=== PATIENT | male | born 1965 | race Caucasian/White ===

== ENCOUNTER 2018-04-15 12:59 | Outpatient (CLI) | payer BC ==
--- NOTE | 2018-04-15 19:44 | CT ---
CT ABDOMEN AND PELVIS WITH AND WITHOUT CONTRAST: HISTORY: R31 and R30, hematuria, acute pain, groin pain, dysuria. COMPARISON: None. FINDINGS: The lung bases are clear. No pericardial effusion. No pleural effusion. Small sliding hiatal herni a. On the noncontrast portion of the examination, there is no nephroureterolithiasis or hydroureteroneph rosis. No secondary evidence of a recently passed stone. No abnormal renal enhancing mass. No abnormal urothelial enhancing mass. No bladder wall mass. On the delayed sequence, there are no filling defects within the renal calices, ureters, or urinary b ladder. The adrenal glands are unremarkable. Prior cholecystectomy. Liver, spleen, and pancreas are all normal. Small retroperitoneal and periaortic lymph nodes are increased in number, although not size. Appendi x is visualized and is normal. Prostate is not significantly enlarged. There is diastasis recti between the infraumbilical rectus m uscles. There is asymmetric volume loss of the right piriformis muscle, relative to the left. There is super ior endplate deformity at L1 with sclerosis. There is severe degenerative disk space disease at L5-S 1. There is avascular necrosis of the right femoral head with articular surface collapse and fractur e through the articular surface, with no connection between the avascular fragment and the underlying femoral neck. Large right-sided hip joint effusion. IMPRESSION: 1. No nephroureterolithiasis or hydroureteronephrosis. No abnormal enhancing urothelial or renal ma ss. 2. No acute inflammatory process of the abdomen and pelvis. 3. Avascular necrosis, right femoral head, with collapse of the femoral head, as well as large right hip and joint effusion and developing secondary osteoarthritic disease. Orthopedic consultation for hip replacement evaluation recommended. 4. Superior endplate fracture of L1 does not appear acute, although it is new from the 2016 MRI exam ination. POS: [facility]
== END 2018-04-15 13:00 | disposition home or self-care (01) ==
LOC: SCSCT 12:59
PROVIDERS: ATTEND Family Medicine
DX: R31.0 Gross hematuria (principal); R30.0 Dysuria; M87.851 Other osteonecrosis, right femur
CPT/HCPCS: 74178

== ENCOUNTER 2018-10-18 12:49 | Outpatient (CLI) | payer BC | END 2018-10-18 12:50 | disposition home or self-care (01) | PROVIDERS: ATTEND Physical Medicine & Rehabilitation | DX: S24.15 Other incomplete lesions of thoracic spinal cord (principal) ==

== ENCOUNTER 2019-11-08 07:33 | Outpatient (CLI) | payer BC, OTHER ==
[2019-11-08 14:25] LABS: #Basophils 0.1 thou/uL (0.0-0.2); #Eosinphils 0.4 thou/uL (0.0-0.7); #Lymphocytes 1.6 thou/uL (1.20-3.40); #Monocytes 0.7 thou/uL (0.11-0.59); %Basophils 1.2 % (0.0-1.0); %Eosinophils 6.2 % (0.0-10.0); %Lymphocytes 23.8 % (21.0-51.0); %Monocytes 10.1 % (0.0-10.0); %Neutrophils 58.6 % (42.0-75.0); Hemoglobin 16.1 g/dL (14.0-18.0); Mean Corpuscular HGB CONC 32.7 g/dL (32.0-36.0); Mean Corpuscular Hemoglobin 31.1 pg (27.0-31.0); Mean Corpuscular Volume 95.3 fL (78.0-98.0); Mean Platelet Volume 8.4 fL (7.4-10.4); Platelet Count 282 thou/uL (130-400); Red Blood Cell (RBC) Count 5.18 mill/uL (4.70-6.10); White Blood Cell (WBC) Count 6.8 thou/uL (4.8-10.8)
[2019-11-08 14:44] LABS: ALT (SGPT) 40 U/L (8-55); AST (SGOT) 32 U/L (5-34); Alkaline Phosphatase 118 U/L (40-110); Anion Gap 17 mmol/L (10-20); BUN (Urea Nitrogen) 15 mg/dL (8.4-25.7); Bilirubin, Total 0.5 mg/dL (0.2-1.2); Calc. Creatinine Clearance 0 mL/min (70-130); Calcium 8.8 mg/dL (7.8-10.44); Carbon Dioxide 20 mmol/L (22-29); Chloride 102 mmol/L (98-107); Estimated GFR-MDRD 84; Globulin 3.6 g/dL (2.4-3.5); Potassium 4.8 mmol/L (3.5-5.1); Protein, Total 7.6 g/dL (6.0-8.3); Sodium 134 mmol/L (136-145)
[2019-11-08 14:54] LABS: Glucose 58 mg/dL (70-105)
[2019-11-09 13:02] LABS: SARS-CoV-2 MS2 Positive; SARS-CoV-2 N Gene Negative; SARS-CoV-2 S Gene Negative; SARS-CoV-2 by NAA Not Detected (NotDetected); SARS-CoV-2 orf1ab Negative
== END 2019-11-08 07:34 | disposition home or self-care (01) ==
LOC: LABBT 07:33
PROVIDERS: ATTEND Surgery
DX: Z01.818 Encounter for other preprocedural examination (principal); Z20.828 Contact with and (suspected) exposure to other viral communicable diseases; G82.20 Paraplegia, unspecified; G89.4 Chronic pain syndrome
CPT/HCPCS: 80053; 85025; 87635; 93005; 93010; U0003

== ENCOUNTER 2020-02-10 10:03 | Day surgery (SDC) | payer BC ==
[2020-02-09 13:16] LABS: SARS-CoV-2 MS2 Positive; SARS-CoV-2 N Gene Negative; SARS-CoV-2 S Gene Negative; SARS-CoV-2 by NAA Not Detected (NotDetected); SARS-CoV-2 orf1ab Negative
[2020-02-09 14:19] VITALS: BMI 45.1
== END 2020-02-10 11:30 | disposition home or self-care (01) ==
LOC: SDC/OP 10:03
PROVIDERS: ATTEND Anesthesiology Pain Medicine
DX: C72.0 Malignant neoplasm of spinal cord (principal); J45.909 Unspecified asthma, uncomplicated; Z87.891 Personal history of nicotine dependence; Z88.1 Allergy status to other antibiotic agents; Z20.828 Contact with and (suspected) exposure to other viral communicable diseases
CPT/HCPCS: 87635; U0003